=== PATIENT | female | born 1990 | race Caucasian/White ===

== ENCOUNTER 2017-12-14 21:00 | Inpatient (IN) | payer BC ==
[2017-12-15] MEDS ORDERED: Misoprostol 200 MCG TAB PR PRN (14:30)
[2017-12-15] MEDS ORDERED: Carboprost 250 MCG/ML AMP IM PRN (14:30)
[2017-12-15] MEDS ORDERED: Acetaminophen 500 MG TAB PO PRN (14:30)
[2017-12-15] MEDS ORDERED: NS / Oxytocin 40 units/1000ml 1,000 ML IV PRN (14:30)
[2017-12-15] MEDS ORDERED: Ondansetron HCl/PF 4 MG/2 ML Vial IVP PRN (14:30)
[2017-12-15] MEDS ORDERED: Ibuprofen 800 MG TAB PO PRN (14:30)
[2017-12-15] MEDS ORDERED: Butorphanol Tartrate 1 MG/ML VIAL SLOW IVP PRN (14:30)
[2017-12-15] MEDS ORDERED: Diphenoxylate HCl/Atropine Tablet PO PRN (14:30)
[2017-12-15] MEDS ORDERED: Promethazine HCl 25 MG/ML VIAL IM PRN (14:30)
[2017-12-15] MEDS ORDERED: Lidocaine 1% (PF) 30 ML VIAL SC PRN (14:30)
[2017-12-15] MEDS ORDERED: Bupivacaine 0.25% HCL 30 ML VIAL ONE (16:20)
[2017-12-15 21:55] VITALS: BMI 30.4
[2017-12-15] MEDS: Lactated Ringer's 1,000 ML IV SCH (22:10)
[2017-12-15] MEDS ORDERED: Penicillin G Potassium 5 MILL.UNITS in Sodium Chloride 0.9% 100 ML IVPB SCH (22:30)
[2017-12-15 22:46] LABS: Hemoglobin 12.1 g/dL (12.0-16.0); Mean Corpuscular HGB CONC 34.6 g/dL (32.0-36.0); Mean Corpuscular Hemoglobin 28.5 pg (27.0-31.0); Mean Corpuscular Volume 82.5 fL (78.0-98.0); Mean Platelet Volume 8.7 fL (7.4-10.4); Platelet Count 105 thou/uL (130-400); RBC Distribution Width 13.6 % (11.5-14.5); Red Blood Cell (RBC) Count 4.24 mill/uL (4.20-5.40); White Blood Cell (WBC) Count 13.7 thou/uL (4.8-10.8)
[2017-12-15] MEDS: Misoprostol 100 MCG TAB VAG SCH (23:14)
[2017-12-15 23:16] LABS: Syphilis Antibody Nonreactive (Nonreactive); Syphilis Antibody Index 0.05 S/CO (<1.00 Non-Reactive)
[2017-12-15 23:31] LABS: HBSAg Index 0.16 S/CO (0-0.99); Hep B Surf Ag Non-Reactive S/CO (NonReactive)
[2017-12-16] MEDS: Lactated Ringer's 1,000 ML IV SCH ×3 (02:20→19:00)
[2017-12-16] MEDS: Penicillin G 2.5 MILL.units 2.5 MILL.UNITS in Premix Bag 1 BAG IVPB SCH ×4 (03:01→16:26)
[2017-12-16] MEDS: Misoprostol 100 MCG TAB VAG SCH ×4 (06:05→18:18)
[2017-12-16] MEDS: NS w/ Oxytocin 10 units 500 ML IV SCH ×2 (06:12→22:30)
[2017-12-16] MEDS ORDERED: DISCONTINUE ALL PREVIOUS NARCOTICS FS SCH (07:30)
[2017-12-16] MEDS ORDERED: Acetaminophen 325 MG TAB PO PRN (08:34)
[2017-12-16] MEDS ORDERED: diphenhydrAMINE 50 MG/ML VIAL IVP PRN (08:34)
[2017-12-16] MEDS ORDERED: Naloxone HCl 0.4 mg/ml Vial IVP PRN ×2 (08:34)
[2017-12-16] MEDS ORDERED: Eucerin (Mineral Oil/Petrolatum,White) 30 gm Jar TOP PRN (08:34)
[2017-12-16] MEDS ORDERED: ePHEDrine/0.9% NaCl/PF SYRINGE 50 mg/10 ml SLOW IVP PRN (08:34)
[2017-12-16] MEDS: Bupivacaine 0.5% 20 ML, fentaNYL Citrate/PF 400 MCG in Sodium Chloride 0.9% 72 ML EPIDURAL SCH ×3 (08:34→21:24)
[2017-12-16] MEDS ORDERED: Lactated Ringer's 500 ML IV PRN (08:34)
[2017-12-16] MEDS ORDERED: Promethazine HCl 25 MG/ML VIAL IM PRN (08:34)
[2017-12-16] MEDS ORDERED: Ondansetron HCl/PF 4 MG/2 ML Vial IVP PRN (08:34)
[2017-12-16] MEDS ORDERED: fentaNYL Citrate/PF 400 MCG, Bupivacaine 0.5% 20 ML in Sodium Chloride 0.9% 72 ML EPIDURAL SCH (08:45)
[2017-12-16] MEDS ORDERED: Communication Order-Pharmacy FS SCH (08:45)
[2017-12-16] MEDS ORDERED: Labetalol HCl 100 MG/20 ML VIAL ONE (11:28)
[2017-12-16] MEDS: Labetalol HCl 100 MG/20 ML VIAL SLOW IVP PRN ×2 (11:33→14:43)
[2017-12-16 14:07] LABS: ALT (SGPT) 21 U/L (8-55); AST (SGOT) 18 U/L (5-34); Albumin 3.4 g/dL (3.5-5.0); Alkaline Phosphatase 175 U/L (40-150); Anion Gap 17 mmol/L (10-20); BUN (Urea Nitrogen) 8 mg/dL (7.0-18.7); Bilirubin, Total 0.5 mg/dL (0.2-1.2); Calc. Creatinine Clearance 183 mL/min (70-130); Calcium 8.9 mg/dL (7.8-10.44); Carbon Dioxide 19 mmol/L (22-29); Chloride 107 mmol/L (98-107); Estimated GFR-MDRD Greater than 90; Globulin 3.4 g/dL (2.4-3.5); Glucose 118 mg/dL (70-105); Potassium 3.7 mmol/L (3.5-5.1); Protein, Total 6.8 g/dL (6.0-8.3); Sodium 139 mmol/L (136-145)
[2017-12-16] MEDS ORDERED: NS w/ Oxytocin 10 units 500 ML IVPB SCH (15:45)
[2017-12-16] MEDS: NS / Oxytocin 40 units/1000ml 1,000 ML IV SCH (23:22)
[2017-12-16] MEDS ORDERED: Milk Of Magnesia 30 ML UDCUP PO PRN (23:45)
[2017-12-16] MEDS ORDERED: Benzocaine/Menthol 20-0.5% 60 ML CAN TOP PRN (23:45)
[2017-12-16] MEDS ORDERED: Preparation H Ointment 28 GM TUBE PR PRN (23:45)
[2017-12-16] MEDS ORDERED: Bisacodyl 10 MG SUPP PR PRN (23:45)
[2017-12-16] MEDS ORDERED: diphenhydrAMINE 25 MG CAP PO PRN (23:45)
[2017-12-16] MEDS ORDERED: traMADol HCl 50 MG TAB PO PRN (23:45)
--- NOTE | 2017-12-16 23:45 | PDOC.OPDEL ---
OB Operative/Delivery Note Delivery Dr/Surgeon: [place] Pre-Delivery Diagnosis: medically indicated induction Procedure/Post Delivery Dx: spontaneous vaginal delivery Weeks gestation: 40 Anesthesia: epidural - Findings A Sex: female Weight: 5 lb 13 oz - 1 min: 8 - 5 min: 8 - Additional Findings/Plan Placenta delivered: spontaneous Repaired Obstetrical Laceration: 2nd degree Estimated blood loss: 367ml QBL Post delivery plan: routine recovery
[2017-12-17] MEDS ORDERED: Adacel (T-DAP) 0.5 ML VIAL IM ONE (01:00)
[2017-12-17] MEDS: traMADol HCl 50 MG TAB PO PRN ×4 (03:12→20:11)
[2017-12-17] MEDS: NS / Oxytocin 40 units/1000ml 1,000 ML IV SCH (04:03)
[2017-12-17 04:54] LABS: Hemoglobin 10.4 g/dL (12.0-16.0); Mean Corpuscular HGB CONC 33.9 g/dL (32.0-36.0); Mean Corpuscular Hemoglobin 28.7 pg (27.0-31.0); Mean Corpuscular Volume 84.5 fL (78.0-98.0); Mean Platelet Volume 8.7 fL (7.4-10.4); Platelet Count 96 thou/uL (130-400); RBC Distribution Width 13.5 % (11.5-14.5); Red Blood Cell (RBC) Count 3.63 mill/uL (4.20-5.40); White Blood Cell (WBC) Count 21.6 thou/uL (4.8-10.8)
[2017-12-17] MEDS: Penicillin G 2.5 MILL.units 2.5 MILL.UNITS in Premix Bag 1 BAG IVPB SCH ×2 (06:02→06:03)
[2017-12-17] MEDS: Misoprostol 100 MCG TAB VAG SCH (06:03)
[2017-12-17] MEDS: Lactated Ringer's 1,000 ML IV SCH (06:03)
[2017-12-17] MEDS: Ibuprofen 800 MG TAB PO SCH ×2 (06:07→14:17)
--- NOTE | 2017-12-17 08:13 | PDOC.PP ---
Post Progress Note Post Day #: 0 PO intake tolerated: yes Flatus: yes Ambulation: yes Vital Signs (12 hours) Temp Pulse Resp BP Pulse Ox 12/17/17 07:00 98.1 F 83 20 129/76 12/17/17 04:00 98.5 F 77 20 129/73 97 12/17/17 03:00 98.9 F 75 22 H 137/73 97 12/17/17 02:00 98.7 F 67 18 137/35 L 97 Weight Weight 189 lb - Physical Examination General: NAD Cardiovascular: no m/r/g, RRR Respiratory: clear to auscultation bilaterally, non-labored breathing Abdominal: + bowel sounds, lochia, no distention, appropriately TTP Result Diagrams: 12/17/17 04:35 12/16/17 13:36 Additional Labs: Post Labs Blood Type A POSITIVE 12/15/17 22:10 Hep Bs Antigen Non-Reactive S/CO (NonReactive) 12/15/17 21:00 - Assessment/Plan Post day 0-1. Blood pressures normalized. Has ITP and platelets above baseline. Routine care...,Anticipate discharge tomorrow.
[2017-12-17] MEDS: Ferrous Sulfate 325 MG TAB PO SCH ×2 (08:21→20:12)
[2017-12-17] MEDS: Docusate Calcium (SURFAK) 240 MG CAP PO SCH ×2 (08:22→20:12)
[2017-12-17] MEDS: Prenatal Vitamin 1 TAB PO SCH (08:22)
[2017-12-18 07:59] VITALS: BP 132/81; TEMP 98.7
--- NOTE | 2017-12-18 08:24 | PDOC.PP ---
Post Progress Note Post Day #: 1-2 PO intake tolerated: yes Flatus: yes Ambulation: yes Vital Signs (12 hours) Temp Pulse Resp BP 12/18/17 07:00 98.7 F 85 20 132/81 12/18/17 04:00 98.5 F 90 18 12/18/17 00:00 98.5 F 90 18 Weight Weight 189 lb - Physical Examination General: NAD Cardiovascular: no m/r/g, RRR Respiratory: clear to auscultation bilaterally, non-labored breathing Abdominal: + bowel sounds, lochia, no distention, appropriately TTP Skin: no rash Result Diagrams: 12/17/17 04:35 12/16/17 13:36 Additional Labs: Post Labs Blood Type A POSITIVE 12/15/17 22:10 Hep Bs Antigen Non-Reactive S/CO (NonReactive) 12/15/17 21:00 - Assessment/Plan post day 1-2 --doing well. blood pressures normal. D/c home. f/u 6 weeks.
[2017-12-18] MEDS: traMADol HCl 50 MG TAB PO PRN (10:00)
[2017-12-18] MEDS: Prenatal Vitamin 1 TAB PO SCH (10:01)
[2017-12-18] MEDS: Ibuprofen 800 MG TAB PO SCH ×3 (10:01→14:07)
[2017-12-18] MEDS: Ferrous Sulfate 325 MG TAB PO SCH ×2 (10:01→15:15)
[2017-12-18] MEDS: Docusate Calcium (SURFAK) 240 MG CAP PO SCH (10:01)
== END 2017-12-18 16:05 | disposition home or self-care (01) | DRG 775 ==
LOC: L&D 12-15 21:28 → 3SW 12-17 02:02
PROVIDERS: ADMIT Obstetrics & Gynecology; ATTEND Obstetrics & Gynecology
PROC: 10E0XZZ Delivery of Products of Conception, External Approach (ICD-10-PCS; principal; 2017-12-15)
PROC: 0KQM0ZZ Repair Perineum Muscle, Open Approach (ICD-10-PCS; 2017-12-15)
PROC: 4A0HXCZ Measurement of Products of Conception, Cardiac Rate, External Approach (ICD-10-PCS; 2017-12-15)
PROC: 3E0234Z Introduction of Serum, Toxoid and Vaccine into Muscle, Percutaneous Approach (ICD-10-PCS; 2017-12-18)
DX: O48.0 Post-term pregnancy (principal); Z3A.40 40 weeks gestation of pregnancy; O70.1 Second degree perineal laceration during delivery; Z37.0 Single live birth; Z23 Encounter for immunization
CPT/HCPCS: 36415; 36416; 51702; 80053; 84156; 85027; 86780; 86850; 86900; 86901; 87340; 90715; J2001; J2540; J3010; J3490; J7050; S0020

== ENCOUNTER 2019-04-15 19:15 | Emergency (ER) | payer BC ==
[2019-04-15 20:20] LABS: #Basophils 0.1 thou/uL (0.0-0.2); #Eosinphils 0.4 thou/uL (0.0-0.7); #Lymphocytes 3.3 thou/uL (1.20-3.40); #Monocytes 0.4 thou/uL (0.11-0.59); #Neutrophils 4.3 thou/uL (1.40-6.50); %Basophils 1.2 % (0.0-1.0); %Eosinophils 4.9 % (0.0-10.0); %Lymphocytes 39.2 % (21.0-51.0); %Monocytes 4.5 % (0.0-10.0); %Neutrophils 50.3 % (42.0-75.0); Hemoglobin 13.1 g/dL (12.0-16.0); Mean Corpuscular HGB CONC 33.7 g/dL (32.0-36.0); Mean Corpuscular Hemoglobin 27.8 pg (27.0-31.0); Mean Corpuscular Volume 82.5 fL (78.0-98.0); Mean Platelet Volume 8.8 fL (7.4-10.4); Platelet Count 61 thou/uL (130-400); RBC Distribution Width 11.3 % (11.5-14.5); Red Blood Cell (RBC) Count 4.73 mill/uL (4.20-5.40); White Blood Cell (WBC) Count 8.5 thou/uL (4.8-10.8)
[2019-04-15 20:53] LABS: Bilirubin Negative (Negative); Blood, Urine 3+ (Negative); Clarity Clear (Clear); Glucose, Urine (Dipstick) Normal (Negative); Leukocyte Negative Leu/uL (Negative); Nitrite Negative (Negative); Protein, Urine (Dipstick) Negative (Neg-Trace); Squamous Epithelial None Seen HPF (0-3); Urobilinogen Normal mg/dL (Less than 2); WBC/HPF 0-3 HPF (0-3)
[2019-04-15 20:59] LABS: Bacteria/HPF None Seen HPF (None Seen)
--- NOTE | 2019-04-15 21:30 | ULT ---
Ultrasound transvaginal Doppler duplex: DATE: 04/15/2019 9:11 PM HISTORY: 28-year-old female with first trimester vaginal bleeding and pelvic pain. FINDINGS: Intrauterine gestational sac with slightly elongated configuration and minimal irregularity of margin s. Mean sac diameter 2.2 cm: 17 weeks 1 day. Tiny nubbin within gestational sac questionable for embryonic pole. Drumright-rump length 2.5 mm: 5 weeks 6 days gestational age. No embryonic cardiac activity detected. No subchorionic hemorrhage. No free fluid in the cul-de-sac. Normal bilateral ovaries with blood flow. IMPRESSION: 1. Mismatch between slightly abnormal gestational sac and questionable tiny embryonic pole. 2. No embryonic heart activity detected. 3. Recommend follow-up transvaginal ultrasound in 11 days.
== END 2019-04-15 22:40 | disposition home or self-care (01) ==
LOC: ERS 19:15
DX: O03.4 Incomplete spontaneous abortion without complication (principal)
CPT/HCPCS: 36415; 76856; 81003; 81015; 84702; 85025; 86900; 86901

== ENCOUNTER 2019-05-01 19:05 | Observation (INO) | payer BC ==
[2019-05-01 20:10] LABS: #Basophils 0.1 thou/uL (0.0-0.2); #Eosinphils 0.2 thou/uL (0.0-0.7); #Lymphocytes 2.3 thou/uL (1.20-3.40); #Monocytes 0.7 thou/uL (0.11-0.59); #Neutrophils 7.6 thou/uL (1.40-6.50); %Basophils 0.5 % (0.0-1.0); %Eosinophils 1.4 % (0.0-10.0); %Lymphocytes 21.3 % (21.0-51.0); %Monocytes 6.9 % (0.0-10.0); %Neutrophils 69.9 % (42.0-75.0); Hemoglobin 8.8 g/dL (12.0-16.0); Mean Corpuscular HGB CONC 34.1 g/dL (32.0-36.0); Mean Corpuscular Hemoglobin 28.3 pg (27.0-31.0); Mean Corpuscular Volume 82.8 fL (78.0-98.0); Mean Platelet Volume 9.4 fL (7.4-10.4); Platelet Count 49 thou/uL (130-400); RBC Distribution Width 11.6 % (11.5-14.5); Red Blood Cell (RBC) Count 3.12 mill/uL (4.20-5.40); White Blood Cell (WBC) Count 10.8 thou/uL (4.8-10.8)
[2019-05-01 20:29] LABS: ALT (SGPT) 13 U/L (8-55); AST (SGOT) 15 U/L (5-34); Albumin 4.6 g/dL (3.5-5.0); Alkaline Phosphatase 83 U/L (40-110); Anion Gap 14 mmol/L (10-20); BUN (Urea Nitrogen) 7 mg/dL (7.0-18.7); Bilirubin, Total 0.4 mg/dL (0.2-1.2); Calc. Creatinine Clearance 0 mL/min (70-130); Calcium 9.3 mg/dL (7.8-10.44); Carbon Dioxide 24 mmol/L (22-29); Chloride 105 mmol/L (98-107); Estimated GFR-MDRD 89; Globulin 3.3 g/dL (2.4-3.5); Glucose 123 mg/dL (70-105); Potassium 3.4 mmol/L (3.5-5.1); Protein, Total 7.9 g/dL (6.0-8.3); Sodium 140 mmol/L (136-145)
[2019-05-01 20:38] LABS: Pregnancy Test - Urine (BHCG) POSITIVE (Negative); Pregu Control Background? CLEAR/WHITE (CLR/WHITE); Pregu Control Bar Appear? YES (CONTROL BAR); Specific Gravity 1.006 (1.002-1.036)
[2019-05-01 20:42] LABS: Bilirubin Negative (Negative); Blood, Urine 3+ (Negative); Clarity Clear (Clear); Glucose, Urine (Dipstick) Normal (Negative); Leukocyte 250 Leu/uL (Negative); Mucous/LPF Rare LPF (<2+); Nitrite Negative (Negative); Protein, Urine (Dipstick) 20 mg/dL (Neg-Trace); RBC/HPF Greater than 50 HPF (0-3); Squamous Epithelial 0-3 HPF (0-3); Urobilinogen Normal mg/dL (Less than 2); WBC/HPF 21-50 HPF (0-3)
[2019-05-01 20:47] LABS: Bacteria/HPF 2+ HPF (None Seen)
--- NOTE | 2019-05-01 21:27 | ULT ---
TRANSVAGINAL PELVIC ULTRASOUND DATE:: 05/01/2019 8:12 PM CLINICAL HISTORY: Concern for retained products of conception; spontaneous with persistent b leeding since April 15, 2019.. COMPARISON: None. TECHNIQUE: Grayscale, color Doppler and spectral Doppler images were obtained of the pelvis see a tra nsvaginal approach Uterus: Size: 8.2 x 3.9 x 2.1 cm Mass: None Cervix: There is complex echogenic material seen within the endometrial canal extending into the cerv ix. Some peripheral areas of increased echogenicity suspicious for gas is present along with the collection. No vascularized material is evident to suggest presence of retained products of conceptio n. Endometrium: Above Ovaries: Size: right measures 2.7 x 1.3 x 3.3 cm; left measures 2.9 x 1.4 x 1.2 cm Mass: None. Flow: Normal Cul-de-sac: No free fluid IMPRESSION: Prominent amount of hemorrhagic debris within the endometrial canal. No vascularized material is seen to suggest retained products of conception. Foci of suspected gas are seen within the periphery of the heterogeneous collection at the level of the lower cervix.
[2019-05-01] MEDS ORDERED: Tranexamic Acid 1,000 MG/10 ML VIAL ONE (21:29)
[2019-05-01] MEDS ORDERED: Piperacillin/Tazobactam 4.5 GM VIAL ONE (21:52)
[2019-05-01] MEDS ORDERED: metroNIDAZOLE 500 MG/100 ML BAG ONE (21:52)
[2019-05-01] MEDS ORDERED: Zolpidem Tartrate 5 MG TAB PO PRN (22:56)
[2019-05-01] MEDS ORDERED: Ondansetron ODT 4 MG TAB PO PRN (22:56)
[2019-05-01] MEDS ORDERED: Acetaminophen 325 MG TAB PO PRN (22:56)
[2019-05-02] MEDS: Sodium Chloride 0.9% 1,000 ML IV SCH ×2 (01:00→21:35)
[2019-05-02] MEDS: Piperacillin/Tazobactam 3.375 GM in Sodium Chloride 0.9% 100 ML IVPB SCH ×4 (04:53→22:04)
--- NOTE | 2019-05-02 05:44 | HP ---
CONSULTING PHYSICIAN: Dr. Tristan, emergency department. CHIEF COMPLAINT: Miscarriage. HISTORY OF PRESENT ILLNESS: This is a 28-year-old G3, P1-0-2-1 with a known spontaneous . She was diagnosed around and has been followed by Dr. Maurer since that time. She was given Cytotec on April 17, passed a lot of clots, but had not completed the miscarriage when she followed up last week. She was offered a repeat dose of cytotec but opted for expectant management. Yesterday, she started bleeding heavily and then it slowed down, but it picked back up again today, so she came in to be evaluated. At this point, her bleeding is minimal and she has minimal pain. REVIEW OF SYSTEMS: Negative for head, eyes, ears, nose, throat, cardiovascular, respiratory, GI, , neuropsych, musculoskeletal, skin, or constitutional symptoms other than mentioned above. PAST MEDICAL HISTORY: ITP, followed by Dr. Hoyt. PAST SURGICAL HISTORY: None. MEDICATIONS: None. ALLERGIES: NO KNOWN DRUG ALLERGIES. SOCIAL HISTORY: Negative for tobacco, alcohol, or drug abuse. 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 She had a blighted ovum prior to that. FAMILY HISTORY: Noncontributory. PHYSICAL EXAMINATION: VITAL SIGNS: Afebrile and tachycardic in the low one 100s to 120s. Vital signs otherwise unremarkable. GENERAL: Awake, alert, no acute distress. Appears comfortable. CHEST: Nonlabored. ABDOMEN: Soft, nontender to palpation. PELVIC: Speculum was placed in the vagina and the cervix was visualized. There was a large amount of tissue protruding from the cervical os, which was grasped with ring forceps and gently teased out intact. This was sent to pathology. There was a foul odor noted at the time of this procedure. The patient tolerated procedure well. There was no remaining active bleeding. EXTREMITIES: No edema. LABORATORY: WBC 10.8, hemoglobin 8.8, hematocrit 25.8, platelets 49,000. IMAGING: Transvaginal ultrasound revealed products of conception in the cervical os. ASSESSMENT AND PLAN: A 28-year-old, 3, para 1-0-2-1, now status post complete spontaneous . She remains tachycardic in the 120s, although she looks well. She will be placed on observation given her laboratory abnormalities and tachycardia and likely discharged to home tomorrow. Since there was a foul odor on exam, another dose of Zosyn was ordered to be given on the floor. If her labs worsen, we will consult Dr. Hoyt for input. Job ID: [id number] MTDD
[2019-05-02 06:11] LABS: Hemoglobin 6.5 g/dL (12.0-16.0); Mean Corpuscular HGB CONC 34.1 g/dL (32.0-36.0); Mean Corpuscular Hemoglobin 28.5 pg (27.0-31.0); Mean Corpuscular Volume 83.6 fL (78.0-98.0); Mean Platelet Volume 9.6 fL (7.4-10.4); Platelet Count 27 thou/uL (130-400); RBC Distribution Width 11.6 % (11.5-14.5); Red Blood Cell (RBC) Count 2.29 mill/uL (4.20-5.40); White Blood Cell (WBC) Count 8.2 thou/uL (4.8-10.8)
[2019-05-02 06:26] LABS: Eosinophils 2 % (0-10); Hypochromia SLIGHT = 6-15 cells (100X) (0-5/hpf); Lymphocytes 39 % (21-51); MDiff Complete? YES; Monocytes 4 % (0-10); Neutrophil 55 % (42-75); Platelet Morphology Comment Appears Decreased
[2019-05-02] MEDS ORDERED: Dexamethasone 40 MG in Sodium Chloride 0.9% 50 ML IVPB SCH (07:30)
--- NOTE | 2019-05-02 07:33 | PDOC.BPN ---
- Brief Progress Note S: Patient doing well this morning. Bleeding minimal overnight. No other complaints. O: AFVSS Gen - AAO, NAD Exam otherwise deferred Labs: WBC: 8.2 Hgb: 6.5 Hct: 19.2 Plt: 27 A/P: 28 y/o s/p complete SAB placed on observation for tachycardia and lab abnormalities. 1) ITP: Dr. Hoyt consulted for management. Will see later today but starting on dexamethasone 40mg x 1 with pepcid now. Order placed. 2) Anemia: Patient asymptomatic. Will defer decision for transfusion to heme. 3) SAB: Now complete. Can follow up with Dr. Maurer. 4) Tachycardia: Resolved with hydration, antibiotics. No e/o sepsis at this time. Continue to monitor.
[2019-05-02] MEDS ORDERED: Dexamethasone Sod Phosphate 40 MG in Sodium Chloride 0.9% 50 ML IVPB SCH (08:45)
[2019-05-02] MEDS ORDERED: Famotidine/PF 20 mg/2ml Vial SLOW IVP SCH (09:00)
--- NOTE | 2019-05-02 10:02 | ULT ---
Exam: Pelvic ultrasound HISTORY: Follow-up miscarriage COMPARISON: 05/01/2019 TECHNIQUE: Multiple grayscale and color Doppler images were obtained in a transabdominal and transvag inal pelvic ultrasound. Spectral analysis of the Doppler waveforms of the ovaries were performed. FINDINGS: CERVIX: The heterogeneous material in the region of the endocervical canal in the lower aspect of the endometrial canal has improved compared to the prior study which may be related to improvement in hemorrhagic material. UTERUS: Normal in size without focal abnormality. ENDOMETRIAL STRIPE: As noted above, the heterogeneous material within the lower uterine segment of th e endometrial canal has improved. No free fluid is present. RIGHT OVARY: Normal flow, without focal mass. LEFT OVARY: Normal flow, without focal mass. IMPRESSION: Improvement in heterogeneous material within the endometrial canal lower uterine segment as well as i n the endocervical canal which may be related to improvement in hemorrhagic material within these areas. However, continued follow-up is recommended to ensure complete resolution of the heterogeneous material.
--- NOTE | 2019-05-02 10:08 | PRG ---
DATE OF SERVICE: 05/02/2019 Hospital day #0 to 1 (12 hours) TIME OF EVALUATION: 0840 to 0850 hours. The patient was seen with Brad Naylor (M3) and student observer, Augustine Underwood. SUBJECTIVE: The patient is alert and has no new concerns this morning. OBJECTIVE: We evaluated vital signs and her lab. Today's vital signs show that she is afebrile with slight tachycardia with a pulse of 108. LABORATORY DATA: Her hematocrit value was 25.8 yesterday, noted a decrease to 19.2 this morning. Platelets also slightly decreased from 49 yesterday to 27 this a.m. TEST PENDING: We have ordered a transvaginal ultrasound to evaluate for possible completed AB. INTERVENTIONS PENDING: Her transfusion of packed red blood cells has been ordered, but is still pending. MEDICATIONS IN USE: Zosyn and dexamethasone are in use. CONSULT OBTAINED: Includes Dr. Hoyt. ASSESSMENT: This is patient status post completed , who is awaiting her first unit of blood transfusion and also has known immune thrombocytopenic purpura followed by Dr. Hoyt. Transvaginal ultrasound has been ordered to evaluate for any possible retained products, although there is no further bleeding at this time. Dexamethasone has been ordered as per Dr. Hoyt's request. PLAN: 1. Await Dr. Hoyt's formal consult. 2. Await ultrasound to evaluate uterine contents. 3. Continue Zosyn as ordered. 4. We will continue antibiotics likely for today (at least 24 hours) and re-evaluate for possible discharge tomorrow. 5. The patient has been ordered 2 units of packed red blood cells with 1 unit of packed red blood cells to be given as her hematocrit is under 20. 6. No evidence of active free vaginal bleeding at this time. 7. No evidence of surgical indication at this time. 8. The patient has been seen and evaluated. All questions were answered. Job ID: [id number]
--- NOTE | 2019-05-02 13:01 | PDOC.EVN ---
Event Note - Event Note Event Note: Sono follow up: Based on the report from this AM...looks like there is improved appearance to the RAMSEY/endometrial cavity. Follow clinically.
[2019-05-02] MEDS ORDERED: diphenhydrAMINE 50 MG CAP PO PRN (13:27)
[2019-05-02] MEDS ORDERED: Iron Sucrose Complex 500 MG in Sodium Chloride 0.9% 250 ML 250 ML IVPB SCH (16:15)
--- NOTE | 2019-05-02 16:48 | PDOC.EVN ---
Event Note - Event Note Event Note: Follow up: [facility] has seen the patient and we have seen her at bedside around 1330. OBGYN Team ( and Guy Quarles {M3}) has given for the sono results from the AM. Heme Onc has ordered IV Fe Sucrose for now. Anticipate AM DC to home.
[2019-05-02] MEDS: Iron, Sodium Ferric Gluconate 250 MG in Sodium Chloride 0.9% 100 ML IVPB SCH (17:54)
--- NOTE | 2019-05-02 23:00 | CON ---
DATE OF CONSULTATION: REASON FOR CONSULTATION: ITP. HISTORY OF PRESENT ILLNESS: Ms. Stack is a pleasant 28-year-old female with a known history of chronic ITP that has been responsive to steroids in the past. She had a spontaneous around and was given Cytotec on April 17. She started bleeding heavily over the weekend and presented to the emergency room for evaluation. Her hemoglobin was 8.8, and platelet count was 49,000. She had a possible vaginal infection and was admitted for observation. She was treated with antibiotics. She had a pelvic exam and was noted to have a large amount of tissue present, which was removed. Her bleeding has stopped. This morning, her CBC showed a hemoglobin of 6.5 and a platelet count of 27,000. We were consulted for ITP. She was given 1 dose of dexamethasone IV with Pepcid. The patient was seen at bedside with her mother. She denies any complaints at this time. She has scant vaginal bleeding. PAST MEDICAL HISTORY: 1. Chronic ITP. 2. Healthy delivery of a daughter in 2018. 3. Borderline microcytic anemia with iron deficiency. 4. Anxiety. ALLERGIES: NO KNOWN DRUG ALLERGIES. HOME MEDICATIONS: None. SOCIAL HISTORY: , has 1 child. No alcohol, tobacco, or illicit drug use. REVIEW OF SYSTEMS: Positive for scant vaginal bleeding. Otherwise, negative. PHYSICAL EXAMINATION: VITAL SIGNS: Temperature 98.4, pulse is 106, respiratory rate 18, BP is 116/63. She is 99% on room air. GENERAL: This is a well-developed, well-nourished female, in no acute distress. HEENT: Normocephalic, atraumatic. Pupils are equal and reactive to light. NECK: Supple. CV: Regular rate and rhythm. LUNGS: Respirations are unlabored. ABDOMEN: Soft. EXTREMITIES: No clubbing or cyanosis, NEUROLOGICAL: Nonfocal. SKIN: There is no rash or petechiae. PERTINENT LABS AND X-RAYS: Current WBCs 8.2, hemoglobin 6.5, hematocrit 19.2, platelet count 27,000, 55% neutrophils, 39% lymphocytes. Sodium 140, potassium 3.4, chloride 105, CO2 is 24, BUN is 7, creatinine 0.78, calcium 9.3, bilirubin 0.4, AST is 15, ALT is 13, alkaline phosphatase is 83, serum total protein 7.9, albumin 4.6, globulin 3.3. ASSESSMENT: 1. Chronic immune thrombocytopenic purpura. 2. Severe anemia likely secondary to vaginal bleeding and iron deficiency. 3. Recent spontaneous . DISCUSSION: The patient has been given a dose of IV steroids with Pepcid. She has been transfused 1 unit of packed RBCs. She has always responded to steroids in the past, so hopefully she will improve over the next several days. Her bleeding is minimal at this point. We will give her a dose of IV iron. She has been borderline iron deficient for some time. Recheck her CBC in the morning and if her counts have improved, she can be discharged home. She will follow up in our clinic for repeat CBC in the next several days. Thank you for the consult. Job ID: [id number]
[2019-05-03] MEDS: Piperacillin/Tazobactam 3.375 GM in Sodium Chloride 0.9% 100 ML IVPB SCH (04:00)
[2019-05-03] MEDS: Sodium Chloride 0.9% 1,000 ML IV SCH (05:16)
[2019-05-03] MEDS: Iron, Sodium Ferric Gluconate 250 MG in Sodium Chloride 0.9% 100 ML IVPB SCH (05:17)
[2019-05-03 06:00] LABS: #Eosinphils 0.1 thou/uL (0.0-0.7); #Lymphocytes 2.2 thou/uL (1.20-3.40); #Monocytes 0.9 thou/uL (0.11-0.59); #Neutrophils 8.7 thou/uL (1.40-6.50); %Eosinophils 0.4 % (0.0-10.0); %Lymphocytes 18.5 % (21.0-51.0); %Monocytes 7.9 % (0.0-10.0); %Neutrophils 73.1 % (42.0-75.0); Hemoglobin 8.8 g/dL (12.0-16.0); Mean Corpuscular Hemoglobin 28.7 pg (27.0-31.0); Mean Corpuscular Volume 84.5 fL (78.0-98.0); Mean Platelet Volume 9.4 fL (7.4-10.4); Platelet Count 53 thou/uL (130-400); RBC Distribution Width 12.3 % (11.5-14.5); Red Blood Cell (RBC) Count 3.07 mill/uL (4.20-5.40); White Blood Cell (WBC) Count 11.9 thou/uL (4.8-10.8)
--- NOTE | 2019-05-03 06:17 | PDOC.EVN ---
Event Note - Event Note Event Note: Doing well. S. No new complaints. O. Hct now 25, and Platlets over 50K Pulse 80-90s BPs wnl A/P: S/P completed AB and s/p 1 unit PRBC, and one dose prednisone. OK for outpatient care. No further need for outpatient ABX. Follow up 2 weeks with her provider.
--- NOTE | 2019-05-03 07:17 | DIS ---
DATE OF ADMISSION: 05/01/2019 DATE OF DISCHARGE: 05/03/2019 PRINCIPAL DIAGNOSES: 1. Suspected completed miscarriage. 2. Anemia from acute blood loss from the completed miscarriage. 3. Immune thrombocytopenic purpura. SERVICES CONSULTED: Hematology Oncology. PROCEDURE PERFORMED: One unit of packed red blood cell transfusion. HOSPITAL COURSE: In brief, this is a patient who was admitted by Isaura White on 05/01/2019 for what was suspected to be a completed miscarriage with products of conception retrieved in the emergency department. She was kept overnight as her hematocrit value initially was 25 and she was tachycardic. Due to a repeat hematocrit value on 05/02/2019 when the value was 19, the decision was made to transfuse 1 unit of packed red blood cells. The patient also has known ITP and her platelets on admission were 49 and decreasing down to 27 on May 02. It was unclear if this was a reactive decrease in response to the miscarriage or dilutional due to IV fluids. She received Decadron 1 dose per Hematology/Oncology on May 03, 2019, and after her 1 unit of packed red blood cells, the hematocrit value was 25.9 and the platelets had increased to 53. No bleeding occurred during the admission. I repeated an ultrasound on 05/02/2019 to evaluate the uterine cavity and there was an improvement in the uterine cavity appearance. There was no indication of retained products clinically and that she was not having any further bleeding. The decision was made not to have surgical intervention by Dr. White or myself. The patient remained afebrile during her admission, although she was prophylactically placed on antibiotics during her admission. The antibiotic given was Zosyn again for prophylactic care. When I evaluated the patient at bedside on May 03, 2019, I found her pulse to be in the 80s, blood pressure ranging from 104/59 to 112/57. Her T-max was 99.2. As she was clinically well, the decision was made to send her home after her iron transfusion (recommended by Hematology/Oncology) was over. Plan was to discharge the patient home on 05/03/2019 at 12 noon with discontinuation of all IVs. She would not go home on any further antibiotic care. Job ID: [id number] [facility]
[2019-05-03 08:23] VITALS: BP 103/56; TEMP 98.4
== END 2019-05-03 11:25 | disposition home or self-care (01) ==
LOC: ERS 19:05 → 3SE 23:55
PROVIDERS: ADMIT Obstetrics & Gynecology; ATTEND Obstetrics & Gynecology
DX: O03.1 Delayed or excessive hemorrhage following incomplete spontaneous abortion (principal); D62 Acute posthemorrhagic anemia; D69.3 Immune thrombocytopenic purpura; F41.9 Anxiety disorder, unspecified
CPT/HCPCS: 36415; 36430; 76856; 80053; 81003; 81015; 81025; 84702; 85007; 85025; 85027; 86850; 86900; 86901; 88305; 96361; 96365; 96366; 96367; 96368; 96375; G0378; J1100; J2543; J2916; J3490; P9016; Q0163; S0028